=== PATIENT | male | born 1965 | race Caucasian/White ===

== ENCOUNTER 2023-12-18 11:51 | Emergency (ER) | payer MEDICAID ==
[~2023-12-18] VITALS: Ht 165.1 cm; Wt 104.3 kg
[2023-12-18 12:01] VITALS: BP 140/97; PULSE 75; RESP 16; TEMP 98.3; O2SAT 97
[2023-12-18] MEDS ORDERED: KETOROLAC 30 MG/ML VIAL IM ONE (12:20)
[2023-12-18] MEDS ORDERED: CYCLOBENZAPRINE 10 MG TAB PO ONE (12:20)
[2023-12-18] MEDS ORDERED: LID5T TP (13:51)
[2023-12-18] MEDS ORDERED: NAPR-1559 PO (13:51)
[2023-12-18] MEDS ORDERED: DICL20GE TP (13:51)
[2023-12-18] MEDS ORDERED: CYCL-711 PO (13:51)
[2023-12-18 14:10] VITALS: BP 140/97; PULSE 75; RESP 16; TEMP 98.3; O2SAT 97
== END 2023-12-18 14:10 | disposition home or self-care (01) ==
LOC: MED 11:51
DX: M54.50 Low back pain, unspecified (principal); Z79.899 Other long term (current) drug therapy
CPT/HCPCS: 81002; 96372; 99283; J1885

== ENCOUNTER 2023-12-21 10:51 | Emergency (ER) | payer MEDICAID ==
[~2023-12-21] VITALS: Ht 165.1 cm; Wt 122.5 kg
[~2023-12-21 10:51] MED LIST: CYCL-711 PO; DICL20GE TP; LID5T TP; NAPR-1559 PO
[2023-12-21 11:13] VITALS: BP 125/75; PULSE 72; RESP 16; TEMP 98.7; O2SAT 96
[2023-12-21] MEDS ORDERED: KETOROLAC 30 MG/ML VIAL IM ONE (11:55)
[2023-12-21] MEDS ORDERED: CAPS1ADH5 TP (13:41)
[2023-12-21] MEDS ORDERED: ACET-8905 PO (13:41)
== END 2023-12-21 13:50 | disposition home or self-care (01) ==
LOC: MED 10:51
DX: S39.012A Strain of muscle, fascia and tendon of lower back, initial encounter (principal); M47.897 Other spondylosis, lumbosacral region; X58.XXXA Exposure to other specified factors, initial encounter; Y93.89 Activity, other specified; Y92.89 Other specified places as the place of occurrence of the external cause; Y99.8 Other external cause status
CPT/HCPCS: 72100; 81002; 96372; 99283; J1885